=== PATIENT | male | born 1960 | race Hispanic/Latino ===

== ENCOUNTER 2017-08-18 11:38 | Emergency (ER) | payer MEDICARE, MEDICAID ==
[2017-08-18 11:44] VITALS: BMI 30.3
--- NOTE | 2017-08-18 12:31 | ED PDOC ---
Upper Extremity Pain/Injury Time Seen by Provider: 08/18/17 12:21 Chief Complaint (Nursing): Upper Extremity Problem/Injury Chief Complaint (Provider): Cellulitis History Per: Patient Onset/Duration Of Symptoms: Days (2), Persistent, Worse Since (this morning) Current Symptoms Are (Timing): Still Present Quality: Aching, "Pain" Severity: Severe Past Medical History Vital Signs: Last Vital Signs Temp 97.8 F 08/18/17 11:39 Pulse 79 08/18/17 11:39 Resp 16 08/18/17 11:39 BP 167/81 H 08/18/17 11:39 Pulse Ox 96 08/18/17 11:39 - Medical History PMH: Anxiety, Asthma, HTN, Pneumonia (2011) Denies: Chronic Kidney Disease - Surgical History Surgical History: Appendectomy, Cholecystectomy, Hernia Repair - Family History Family History: States: Hypertension - Home Medications Home Medications: Ambulatory Orders Medication Instructions Recorded Mometasone [Asmanex Twisthaler 220 1 puff IH DAILY 12/17/15 MCG] Allopurinol [Zyloprim] 300 mg PO DAILY 08/18/17 Bisoprolol [Zebeta] 5 mg PO DAILY 08/18/17 Cephalexin [cephalexin] 500 mg PO QID #40 cap 08/18/17 Lisinopril [Zestril] 30 mg PO DAILY 08/18/17 Omeprazole [Omeprazole] 20 mg PO DAILY 08/18/17 Sulfamethoxazole/Trimethoprim 1 tab PO BID #20 tab 08/18/17 [Bactrim DS 800 mg-160 mg] - Allergies Allergies/Adverse Reactions: Allergies Allergy/AdvReac Type Severity Reaction Status Date / Time No Known Allergies Allergy Verified 11/19/15 15:52 - Laboratory Results Result Diagrams: 08/18/17 13:00 08/18/17 13:00 - ECG O2 Sat by Pulse Oximetry: 96 Disposition - Clinical Impression Clinical Impression: Cellulitis of arm - Patient ED Disposition Is Patient to be Admitted: No Discussed With : Kofi He (agreed with discharge plan and PO bactrim and keflex, follow up with cristal Oates) Doctor Will See Patient In The: Office Counseled Patient/Family Regarding: Studies Performed, Diagnosis, Need For Followup, Rx Given - Disposition Referrals: Alisa Velazquez MD [Medical Doctor] - Disposition: Routine/Home Disposition Time: 16:12 Condition: STABLE Prescriptions: Cephalexin [cephalexin] 500 mg PO QID #40 cap Sulfamethoxazole/Trimethoprim [Bactrim DS 800 mg-160 mg] 1 tab PO BID #20 tab Instructions: Cellulitis and Erysipelas (Skin Infections), Cellulitis (Skin Infection), Adult (DC) Forms: [employer] ([place]an), [facility] ED School/Work Excuse - POA Present On Arrival: None Location Of Wound: right elbow, dorsal side
[2017-08-18] MEDS ORDERED: Piperacillin/Tazobact 3.375 GM in Sodium Chloride 0.9% 100 ML IVPB STA (12:34)
[2017-08-18] MEDS ORDERED: Piperacillin/Tazobact 3.375 gm Inj IVPB ONE (12:43)
[2017-08-18] MEDS ORDERED: Sodium Chloride 0.9% 1,000 ML IV ONE (12:45)
--- NOTE | 2017-08-18 12:57 | RAD ---
PROCEDURE: Radiographs of the right elbow. HISTORY: r/o bone infx COMPARISON: No prior. FINDINGS: BONES: Bone alignment is normal. There is mild periarticular bone demineralization. No acute displaced fracture or bone destruction JOINTS: Normal. No osteoarthritis. SOFT TISSUES: Normal. JOINT EFFUSION: None. OTHER FINDINGS: None. IMPRESSION: No acute fracture or dislocation.
[2017-08-18 13:14] LABS: BASO # 0.1 K/uL (0.0-0.2); EOS # 0.2 K/uL (0.0-0.7); HEMOGLOBIN 14.4 g/dL (12.0-18.0); LYMPH # 1.9 K/uL (1.0-4.3); LYMPH % 19.6 % (20.0-40.0); MEAN CELL VOLUME 90.9 fl (80.0-94.0); MEAN CORPUSCULAR HEMOGLOBIN 30.9 pg (27.0-31.0); MEAN PLATELET VOLUME 8.4 fl (7.2-11.7); MONO # 1.2 K/uL (0.0-0.8); MONO % 11.8 % (0.0-10.0); NEUT # 6.4 K/uL (1.8-7.0); NEUT % 65.6 % (50.0-75.0); NRBC % 0.1 % (0.0-0.0); RBC 4.65 Mil/uL (4.40-5.90); RED CELL DISTRIBUTION WIDTH 16.1 % (11.5-14.5); WHITE BLOOD COUNT 9.8 K/uL (4.8-10.8)
[2017-08-18 13:22] LABS: SPERM URINE MOD /hpf; URINE BACTERIA RARE (<OCC); URINE BILIRUBIN NEGATIVE (NEGATIVE); URINE BLOOD NEGATIVE (NEGATIVE); URINE CLARITY SLIGHTY-CLOUDY (Clear); URINE COLOR YELLOW (YELLOW); URINE GLUCOSE (UA) NEG (Normal); URINE LEUKOCYTE ESTERASE NEG Leu/uL (Negative); URINE PROTEIN 30 mg/dL (NEGATIVE); URINE UROBILINOGEN 0.2-1.0 mg/dL (0.2-1.0)
[2017-08-18 13:25] LABS: ALB/GLOB RATIO 1.1 (1.0-2.1); ALBUMIN 3.9 g/dL (3.5-5.0); GFR AFRICAN-AMERICAN > 60; GFR NON-AFRICAN AMERICAN > 60
[2017-08-18 13:32] LABS: ALT/SGPT 28 U/L (21-72); AST/SGOT 29 U/L (17-59); BLOOD UREA NITROGEN 13 mg/dl (9-20)
[2017-08-18 16:52] VITALS: BP 143/80; PULSE 73; RESP 18; TEMP 99.7; O2SAT 98
== END 2017-08-18 16:53 | disposition home or self-care (01) ==
LOC: H.ER 11:38
DX: L03.119 Cellulitis of unspecified part of limb (principal); F41.9 Anxiety disorder, unspecified; I10 Essential (primary) hypertension; J45.909 Unspecified asthma, uncomplicated
CPT/HCPCS: 73080; 80053; 81003; 83605; 85025; 87040; 96374; 96376; 99284; J2270; J2543; J7040

== ENCOUNTER 2018-04-05 14:24 | Emergency (ER) | payer MEDICARE, MEDICAID ==
[2018-04-05 14:25] VITALS: BMI 29.9
[2018-04-05 14:46] VITALS: RESP 18
--- NOTE | 2018-04-05 15:11 | ED PDOC ---
Upper Extremity Pain/Injury Chief Complaint (Provider): right elbow pain, swelling History Per: Patient History/Exam Limitations: no limitations Onset/Duration Of Symptoms: Days (4-5), Gradual Current Symptoms Are (Timing): Still Present Quality: "Pain" Severity: Moderate Elbow (Pic): 1 - Tenderness, Swelling Additional Complaint(s): 57yo male c/o right elbow pain/ swelling/ redness ongoing for 4-5 days, similar to symptoms he had earlier this year when told he had bursitis, per old chart from 08/12, diagnosed with cellulitis and placed on double coverage antibiotics. He denies trauma/injury, fever, weakness or shoulder/wrist pain. Denies other skin problems or prior history of abscess or skin boils. He denies hx of diabetes. <Stu Cintron III - Last Filed: 04/05/18 15:08> <Kristi Gordillo - Last Filed: 04/06/18 19:26> Time Seen by Provider: 04/05/18 14:45 Chief Complaint (Nursing): Upper Extremity Problem/Injury Past Medical History Reviewed: Historical Data, Nursing Documentation, Vital Signs Vital Signs: Last Vital Signs Temp 98.9 F 04/05/18 14:44 Pulse 71 04/05/18 14:44 Resp 18 04/05/18 14:44 BP 143/76 04/05/18 14:44 Pulse Ox 100 04/05/18 14:44 - Medical History PMH: Anxiety, Asthma, HTN, Pneumonia (2011) Denies: Chronic Kidney Disease - Surgical History Surgical History: Appendectomy, Cholecystectomy, Hernia Repair - Family History Family History: States: Hypertension - Social History Current smoker - smoking cessation education provided: No <Stu Cintron III - Last Filed: 04/05/18 15:08> Vital Signs: Last Vital Signs Temp 98.9 F 04/05/18 14:44 Pulse 71 04/05/18 14:44 Resp 18 04/05/18 14:44 BP 143/76 04/05/18 14:44 Pulse Ox 100 04/05/18 15:15 <Kristi Gordilol - Last Filed: 04/06/18 19:26> - Home Medications Home Medications: Ambulatory Orders Medication Instructions Recorded Mometasone [Asmanex Twisthaler 220 1 puff IH DAILY 12/17/15 MCG] Cephalexin [cephalexin] 500 mg PO QID #40 cap 08/18/17 Omeprazole 20 mg PO DAILY 08/18/17 RX: Allopurinol [Zyloprim] 300 mg PO DAILY 08/18/17 RX: Bisoprolol [Zebeta] 5 mg PO DAILY 08/18/17 RX: Lisinopril [Zestril] 30 mg PO DAILY 08/18/17 Sulfamethoxazole/Trimethoprim 1 tab PO BID #20 tab 08/18/17 [Bactrim DS 800 mg-160 mg] Cephalexin [cephalexin] 500 mg PO TID #21 cap 04/05/18 RX: Ibuprofen [Motrin Tab] 800 mg PO Q8 PRN #21 tab 04/05/18 Sulfamethoxazole/Trimethoprim 1 tab PO BID #14 tab 04/05/18 [Bactrim DS 800 mg-160 mg] - Allergies Allergies/Adverse Reactions: Allergies Allergy/AdvReac Type Severity Reaction Status Date / Time No Known Allergies Allergy Verified 11/19/15 15:52 Review of Systems ROS Statement: Except As Marked, All Systems Reviewed And Found Negative Constitutional: Negative for: Fever Cardiovascular: Negative for: Chest Pain Musculoskeletal: Positive for: Arm Pain (elbow R). Negative for: Neck Pain, Back Pain Skin: Negative for: Rash, Lesions Neurological: Negative for: Weakness, Headache <Stu Cintron III - Last Filed: 04/05/18 15:08> Physical Exam - Reviewed Nursing Documentation Reviewed: Yes Vital Signs Reviewed: Yes - Physical Exam Appears: Positive for: Well Respiratory: Negative for: Respiratory Distress Extremity: Positive for: Swelling (R elbow olecranon w mild erythema and edema) <Stu Cintron III - Last Filed: 04/05/18 15:08> - Reviewed Nursing Documentation Reviewed: Yes Vital Signs Reviewed: Yes - Physical Exam Appears: Positive for: Non-toxic, No Acute Distress Head Exam: Positive for: NORMOCEPHALIC Eye Exam: Positive for: Normal appearance Neck: Positive for: Supple Cardiovascular/Chest: Positive for: Regular Rate, Rhythm Respiratory: Positive for: Normal Breath Sounds Extremity: Positive for: Normal ROM (pain on flexion), Capillary Refill (<2 seconds), Other (sensation intact throughout. (+) warmth to olecranon) Neurologic/Psych: Positive for: Alert, Oriented (x3), Gait (steady in ED) <Kristi Gordillo - Last Filed: 04/06/18 19:26> - ECG O2 Sat by Pulse Oximetry: 100 <Stu Cintron III - Last Filed: 04/05/18 15:08> - Laboratory Results Result Diagrams: 04/05/18 15:30 04/05/18 15:23 - ECG O2 Sat by Pulse Oximetry: 100 (RA) Pulse Ox Interpretation: Normal <Kristi Gordillo - Last Filed: 04/06/18 19:26> Medical Decision Making Medical Decision Making: initial virtual provider orders placed and care transferred to ABEL Gordillo/ Dr Pizano for comprehensive exam and dispo. <Stu Cintron III - Last Filed: 04/05/18 15:08> Medical Decision Making: Patient examined by Radn LAY. Agreeable to plan provided by Dr Cintron. Plan: CBC CMP Uric Acid Elbow XR 3 views ESR 1645 CBC with no leukocytosis. Uric acid WNL. ESR elevated at 29. Elbow XR: no acute disease as read by Rnad LAY Given patient states his current symptoms are similar to cellulitis in past, Keflex PO and Bactrim PO ordered. 1830 On re-evaluation, patient reports improvement of symptoms. On exam, patient remains AAOx3, in no acute distress. Vitals stable. Return parameters discussed. Lab/Diagnostic results d/w the patient in great detail. Diagnosis of acute elbow pain and swelling, consider early cellulitis d/w the patient. Based on history, exam and diagnostic results, plan will be for outpatient follow up with PMD/ortho. Patient instructed to follow-up with pmd / referral provided / the clinic in 1- 2 days without fail. Advised to take medication as prescribed. Return to the emergency room at any time for any new or worsening symptoms. Patient states he fully agrees with and understands discharge instructions. States that he agrees with the plan and disposition. Verbalized and repeated discharge instructions and plan. I have given the patient opportunity to ask any additional questions. <Kristi Gordillo - Last Filed: 04/06/18 19:26> Disposition - Patient ED Disposition Is Patient to be Admitted: Transfer of Care - Disposition Disposition: Transfer of Care Patient Signed Over To: Humberto Pizano (ABEL Gordillo) <Stu Cintron III - Last Filed: 04/05/18 15:08> - Patient ED Disposition Is Patient to be Admitted: No Counseled Patient/Family Regarding: Studies Performed, Diagnosis, Need For Followup, Rx Given - Disposition Disposition: Routine/Home Disposition Time: 18:30 - POA Present On Arrival: None <RandKristi K - Last Filed: 04/06/18 19:26> - Clinical Impression Clinical Impression: Elbow pain, right, Cellulitis of elbow - Disposition Referrals: Mike Méndez III, MD [Staff Provider] - Kofi He MD [Family Provider] - Condition: STABLE Additional Instructions: The emergency medical care you received today was directed at your acute symptoms. If you were prescribed any medication, please fill it and take as directed. It may take several days for your symptoms to resolve. Return to the Emergency Department if your symptoms worsen, do not improve, or if you have any other problems. Please contact your doctor in 2 days for re-evaluation and follow up / or call one of the physicians/clinics you have been referred to that are listed on the Patient Visit Information form that is included in your discharge packet. Bring any paperwork you were given at discharge with you along with any medications you are taking to your follow up visit. Our treatment cannot replace ongoing medical care by a primary care provider (PCP) outside of the emergency department. Prescriptions: Cephalexin [cephalexin] 500 mg PO TID #21 cap RX: Ibuprofen [Motrin Tab] 800 mg PO Q8 PRN #21 tab PRN Reason: Pain, Moderate (4-7) Sulfamethoxazole/Trimethoprim [Bactrim DS 800 mg-160 mg] 1 tab PO BID #14 tab Instructions: Cellulitis and Erysipelas (Skin Infections) Forms: [employer] ([place]), [facility] ED School/Work Excuse Print Language: LAO Results - Lab Results Lab Results: 04/05/18 04/05/18 15:30 15:23 WBC 5.2 RBC 4.20 L Hgb 13.4 Hct 40.2 MCV 95.7 H D MCH 31.9 H MCHC 33.3 RDW 14.5 Plt Count 117 L D MPV 8.3 Neut % (Auto) 56.4 Lymph % (Auto) 24.8 Elliott % (Auto) 15.3 H Eos % (Auto) 2.7 Baso % (Auto) 0.8 Neut # (Auto) 2.9 Lymph # (Auto) 1.3 Elliott # (Auto) 0.8 Eos # (Auto) 0.1 Baso # (Auto) 0.0 ESR 29 H Sodium 140 Potassium 3.8 Chloride 108 H Carbon Dioxide 23 Anion Gap 13 BUN 10 Creatinine 0.7 L Est GFR ( Amer) > 60 Est GFR (Non-Af Amer) > 60 Random Glucose 102 Uric Acid 5.6 Calcium 8.4 Total Bilirubin 0.5 AST 38 ALT 30 Alkaline Phosphatase 86 Total Protein 6.8 Albumin 3.7 Globulin 3.1 Albumin/Globulin Ratio 1.2 <Kristi Gordillo - Last Filed: 04/06/18 19:26>
[2018-04-05 15:39] LABS: BASO % 0.8 % (0.0-2.0); EOS # 0.1 K/uL (0.0-0.7); EOS % 2.7 % (0.0-4.0); HEMOGLOBIN 13.4 g/dL (12.0-18.0); LYMPH # 1.3 K/uL (1.0-4.3); LYMPH % 24.8 % (20.0-40.0); MEAN CELL VOLUME 95.7 fl (80.0-94.0); MEAN CORPUSCULAR HEMOGLOBIN 31.9 pg (27.0-31.0); MEAN CORPUSCULAR HGB CONC 33.3 g/dL (33.0-37.0); MEAN PLATELET VOLUME 8.3 fl (7.2-11.7); MONO # 0.8 K/uL (0.0-0.8); MONO % 15.3 % (0.0-10.0); NEUT # 2.9 K/uL (1.8-7.0); NEUT % 56.4 % (50.0-75.0); NRBC % 0.1 % (0.0-0.0); RBC 4.2 Mil/uL (4.40-5.90); RED CELL DISTRIBUTION WIDTH 14.5 % (11.5-14.5); WHITE BLOOD COUNT 5.2 K/uL (4.8-10.8)
[2018-04-05 16:00] LABS: ALB/GLOB RATIO 1.2 (1.0-2.1); ALBUMIN 3.7 g/dL (3.5-5.0); ALT/SGPT 30 U/L (21-72); AST/SGOT 38 U/L (17-59); BLOOD UREA NITROGEN 10 mg/dl (9-20); CALCIUM 8.4 mg/dL (8.4-10.2); GFR NON-AFRICAN AMERICAN > 60; URIC ACID 5.6 mg/Dl (3.5-8.5)
[2018-04-05] MEDS ORDERED: Tmp-Smz 800 mg-160 mg DS Tab PO STA (16:42)
[2018-04-05] MEDS ORDERED: Tmp-Smz 800 mg-160 mg DS Tab ONE (17:04)
[2018-04-05 19:07] VITALS: BP 138/76; PULSE 72; TEMP 98.2
--- NOTE | 2018-04-06 10:09 | RAD ---
Date of service: 04/05/2018 PROCEDURE: Radiographs of the right elbow. HISTORY: Pain and swelling COMPARISON: No prior. FINDINGS: BONES: Bone alignment is normal. There is periarticular bone demineralization. There is no acute displaced fracture or bone destruction. JOINTS: The joint spaces are preserved. SOFT TISSUES: Normal. JOINT EFFUSION: None. OTHER FINDINGS: None. IMPRESSION: No acute fracture or dislocation.
[2018-04-06 19:26] VITALS: O2SAT 100
== END 2018-04-05 19:07 | disposition home or self-care (01) ==
LOC: H.ER 14:24
DX: L03.113 Cellulitis of right upper limb (principal); M25.521 Pain in right elbow; I10 Essential (primary) hypertension; J45.909 Unspecified asthma, uncomplicated
CPT/HCPCS: 73080; 80053; 84550; 85025; 85651; 96374; 99283; J1885

== ENCOUNTER 2018-07-21 06:14 | Emergency (ER) | payer MEDICARE, MEDICAID ==
[2018-07-21 06:14] VITALS: BMI 29.9
[2018-07-21] MEDS ORDERED: Benzocaine/Menthol (Cepacol) Lozenge PO ONE (07:35)
--- NOTE | 2018-07-21 07:38 | ED PDOC ---
HPI: CCC, URI, Sore Throat Additional History Per: Patient Additional Complaint(s): 57 y/o male with PMH of HTN, GERD, Asthma and pneumonia comes to ER for 4 days hx of cough, subjective fever, chills and 1 day hx of blood tingled sputum. Patient reports sore throat, dizziness today with headache but denies any chest pain, SOB, abdominal pain, diarrhea or weakness. Denies any sick contact, recent travel. Denies smoking. PCP: Dr. He Mekhi: NKDA Meds: Lisinopril 5 mg PO daily, Asmanex 1 puff INH daily, Prilosec 20 mg PO daily Hosp: PNA 1 year ago Surg: Appendectomy at age 11, Hernia FHx: Father esophageal cancer. Shx: + ETOH 3-4 beers on weekends, neg smoker, neg rect drugs <Amira Guzman - Last Filed: 07/21/18 11:20> <Kristi Alvarez - Last Filed: 07/21/18 14:39> Time Seen by Provider: 07/21/18 07:14 Chief Complaint (Nursing): Cough, Cold, Congestion Supervising Attending Note - Supervising Attending Note The Documented history was done by the: Physician Video Library Assistant The documented physical exam was done by the: Physician Video Library Assistant The documented procedures were done by the: Physician Video Library Assistant - Attestation: I have personally seen and examined this patient.: Yes I have fully participated in the care of the patient.: Yes - Notes: Notes:: Pt with cough with blood tinged sputum. CXR unchanged from previous and labs unremarkable. PT to be signed out to primary doctor. Return parameters discussed. <Kristi Alvarez - Last Filed: 07/21/18 14:39> Past Medical History Vital Signs: Last Vital Signs Temp 100.8 F H 07/21/18 06:35 Pulse 93 H 07/21/18 06:35 Resp 18 07/21/18 06:35 BP 165/93 H 07/21/18 06:35 Pulse Ox 92 L 07/21/18 06:35 - Medical History PMH: Anxiety, Asthma, HTN, Pneumonia (2011) Denies: Chronic Kidney Disease - Surgical History Surgical History: Appendectomy, Cholecystectomy, Hernia Repair - Family History Family History: States: Hypertension <Amira Guzman - Last Filed: 07/21/18 11:20> Vital Signs: Last Vital Signs Temp 99.3 F 07/21/18 11:13 Pulse 61 07/21/18 11:13 Resp 24 07/21/18 11:13 BP 111/61 07/21/18 11:13 Pulse Ox 92 L 07/21/18 11:20 <Kristi Alvarez - Last Filed: 07/21/18 14:39> - Home Medications Home Medications: Ambulatory Orders Medication Instructions Recorded Mometasone [Asmanex Twisthaler 220 1 puff IH DAILY 12/17/15 MCG] Allopurinol [Zyloprim] 300 mg PO DAILY 08/18/17 Bisoprolol [Zebeta] 5 mg PO DAILY 08/18/17 Cephalexin [cephalexin] 500 mg PO QID #40 cap 08/18/17 Lisinopril [Zestril] 30 mg PO DAILY 08/18/17 Omeprazole 20 mg PO DAILY 08/18/17 Sulfamethoxazole/Trimethoprim 1 tab PO BID #20 tab 08/18/17 [Bactrim DS 800 mg-160 mg] Cephalexin [cephalexin] 500 mg PO TID #21 cap 04/05/18 Ibuprofen [Motrin Tab] 800 mg PO Q8 PRN #21 tab 04/05/18 Sulfamethoxazole/Trimethoprim 1 tab PO BID #14 tab 04/05/18 [Bactrim DS 800 mg-160 mg] Acetaminophen [Tylenol 325mg tab] 650 mg PO Q6H PRN #30 tab 07/21/18 Benzonatate [Tessalon Perle] 100 mg PO TID #20 capsule 07/21/18 - Allergies Allergies/Adverse Reactions: Allergies Allergy/AdvReac Type Severity Reaction Status Date / Time No Known Allergies Allergy Verified 11/19/15 15:52 Curb-65 Severity Score - CURB-65 Severity Score Confusion: No Curb-65 Score: 0 Percentage 30-day mortality: 0.6% <Amira Guzman - Last Filed: 07/21/18 11:20> Review of Systems Constitutional: Positive for: Fever, Chills, Sweats, Malaise. Negative for: Weakness Eyes: Negative for: Pain ENT: Positive for: Throat Pain. Negative for: Ear Discharge, Nose Discharge, Mouth Swelling, Throat Swelling Cardiovascular: Negative for: Chest Pain, Palpitations Respiratory: Positive for: Cough (blood tinged sputum). Negative for: Shortness of Breath Gastrointestinal: Negative for: Nausea, Vomiting, Abdominal Pain, Diarrhea Genitourinary Male: Negative for: Dysuria, Frequency Musculoskeletal: Negative for: Neck Pain, Shoulder Pain Skin: Negative for: Rash <Amira Guzman - Last Filed: 07/21/18 11:20> Physical Exam - Physical Exam Appears: Positive for: No Acute Distress Head Exam: Positive for: NORMAL INSPECTION Skin: Positive for: Normal Color, Warm, Dry Eye Exam: Positive for: EOMI, PERRL. Negative for: Conjunctival injection ENT: Positive for: Pharyngeal Erythema. Negative for: Tonsillar Exudate Neck: Positive for: Normal, Painless ROM Cardiovascular/Chest: Positive for: Regular Rate, Rhythm Respiratory: Positive for: Normal Breath Sounds. Negative for: Accessory Muscle Use, Stridor, Wheezing Gastrointestinal/Abdominal: Positive for: Normal Exam, Soft. Negative for: Tenderness Back: Positive for: Normal Inspection. Negative for: L CVA Tenderness, R CVA Tenderness Extremity: Positive for: Normal ROM. Negative for: Tenderness Neurological/Psych: Positive for: Awake, Alert <Amira Guzman - Last Filed: 07/21/18 11:20> - Laboratory Results Result Diagrams: 07/21/18 07:50 07/21/18 07:50 - ECG O2 Sat by Pulse Oximetry: 92 - Progress ED Course And Treament: A/P: 57 y/o male with PMH of HTN, GERD, Asthma and pneumonia comes to ER for 4 days hx of cough, subjective fever, chills and 1 day hx of blood tingled sputum. - CBC - CMP - Rapid strep - Flu - Trop - CXR - EKG - Tessemassimo duncan - Cephacol - Reevaluation Case discussed with Dr. Alvarez labs reviewed: WNL CXR: no acute findings. EKG: NSR Patient understands and agrees with plan Re-evaluation Time: 11:08 Condition: Improved <Amira Guzman - Last Filed: 07/21/18 11:20> - Laboratory Results Result Diagrams: 07/21/18 07:50 07/21/18 07:50 Lab Results: Troponin I < 0.0120 ng/mL (0.00-0.120) 07/21/18 07:50 NT-Pro-B Natriuret Pep 436 pg/ml (0-900) 07/21/18 10:07 Total Bilirubin 1.0 mg/dl (0.2-1.3) 07/21/18 07:50 AST 27 U/L (17-59) 07/21/18 07:50 ALT 24 U/L (21-72) 07/21/18 07:50 Alkaline Phosphatase 82 U/L (38-126) 07/21/18 07:50 Total Protein 6.9 G/DL (6.3-8.2) 07/21/18 07:50 Albumin 3.8 g/dL (3.5-5.0) 07/21/18 07:50 Globulin 3.1 gm/dL (2.2-3.9) 07/21/18 07:50 Albumin/Globulin Ratio 1.2 (1.0-2.1) 07/21/18 07:50 <Kristi Alvarez - Last Filed: 07/21/18 14:39> Medical Decision Making Medical Decision Making: Cough <Amira Guzman - Last Filed: 07/21/18 11:20> Disposition - Patient ED Disposition Is Patient to be Admitted: No - Disposition Disposition: Routine/Home Disposition Time: 11:10 <Amira Guzman - Last Filed: 07/21/18 11:20> <Kristi Alvarez - Last Filed: 07/21/18 14:39> - Clinical Impression Clinical Impression: Cough, Upper respiratory infection - Disposition Referrals: Kofi He MD [Family Provider] - Condition: FAIR Additional Instructions: f/u with PMD in 2-3 days Return to ED if symptoms get worse or no improvement in 2-3 days Prescriptions: Acetaminophen [Tylenol 325mg tab] 650 mg PO Q6H PRN #30 tab PRN Reason: Fever >100.4 F Benzonatate [Tessalon Perle] 100 mg PO TID #20 capsule Instructions: Cough in Adults, Viral Upper Respiratory Infection, Adult (DC) Forms: [email or web address] (Portuguese), [facility] ED School/Work Excuse Print Language: ALBANIAN
[2018-07-21 07:59] LABS: BASO % 0.5 % (0.0-2.0); EOS # 0.1 K/uL (0.0-0.7); EOS % 1.1 % (0.0-4.0); HEMOGLOBIN 13.3 g/dL (12.0-18.0); LYMPH # 0.6 K/uL (1.0-4.3); MEAN CELL VOLUME 92.1 fl (80.0-94.0); MEAN CORPUSCULAR HGB CONC 34.7 g/dL (33.0-37.0); MEAN PLATELET VOLUME 7.6 fl (7.2-11.7); MONO # 0.6 K/uL (0.0-0.8); MONO % 8.5 % (0.0-10.0); NEUT # 5.9 K/uL (1.8-7.0); NEUT % 81.9 % (50.0-75.0); NRBC % 0.1 % (0.0-0.0); PLATELET COUNT 112 K/uL (130-400); RBC 4.15 Mil/uL (4.40-5.90); RED CELL DISTRIBUTION WIDTH 13.9 % (11.5-14.5); WHITE BLOOD COUNT 7.2 K/uL (4.8-10.8)
[2018-07-21 08:13] LABS: ALB/GLOB RATIO 1.2 (1.0-2.1); ALBUMIN 3.8 g/dL (3.5-5.0); ALT/SGPT 24 U/L (21-72); AST/SGOT 27 U/L (17-59); BLOOD UREA NITROGEN 13 mg/dl (9-20); GFR NON-AFRICAN AMERICAN > 60
[2018-07-21] MEDS ORDERED: Potassium Chloride 20 mEq ER Tab PO ONE (08:14)
--- NOTE | 2018-07-21 08:16 | CARD ---
APPROVED REPORT Date of service: 07/21/2018 EKG Measurement Heart [id number] <Conclusion> Normal sinus rhythm Normal ECG
[2018-07-21] MEDS ORDERED: Sodium Chloride 0.9% 1,000 ML IV SCH (08:45)
--- NOTE | 2018-07-21 10:04 | RAD ---
Date of service: 07/21/2018 PROCEDURE: CHEST RADIOGRAPH, 1 VIEW HISTORY: Cough COMPARISON: 12/17/2015 chest x-ray. CT chest 12/18/2015 FINDINGS: Current study rotated towards the right. LUNGS: No interval dense consolidation seen. The prior CT referenced subtle infiltrate was patchiness distribution in the right hemithorax and difficult to visualize on the prior chest x-ray. PLEURA: No pneumothorax or pleural fluid seen. CARDIOVASCULAR: There is presence of aortic atherosclerotic calcification on x-ray. Mild [id number] allowing for differences in technique. OSSEOUS STRUCTURES: Thoracic spondylosis-similar. Bilateral shoulder arthrosis VISUALIZED UPPER ABDOMEN: Normal. OTHER FINDINGS: None. IMPRESSION: No interval acute cardiopulmonary pathology noted.
[2018-07-21 10:15] LABS: BASOPHIL 1 % (0-2); EOSINOPHIL 1 % (0-7); LYMPHOCYTE 8 % (20-50); MONOCYTE 8 % (0-10); NEUTROPHIL 80 % (42-75); REACTIVE LYMPHOCYTES 2 % (0-0); TOTAL CELLS COUNTED 100
[2018-07-21 10:16] LABS: PLATELET ESTIMATE DECREASED (NORMAL)
[2018-07-21 11:14] VITALS: BP 111/61; PULSE 61; RESP 24; TEMP 99.3
[2018-07-21 11:15] VITALS: O2SAT 92
== END 2018-07-21 11:36 | disposition home or self-care (01) ==
LOC: H.ER 06:14
DX: R05 Cough (principal); J06.9 Acute upper respiratory infection, unspecified; I10 Essential (primary) hypertension; J45.909 Unspecified asthma, uncomplicated; K21.9 Gastro-esophageal reflux disease without esophagitis; Z79.899 Other long term (current) drug therapy
CPT/HCPCS: 71045; 80053; 83880; 84484; 85025; 87070; 87430; 87804; 93005; 99283; J7030